=== PATIENT | female | born 1965 | race Caucasian/White ===

== ENCOUNTER → 2019-01-24 | Outpatient (CLI) | payer BC, OTHER ==
--- NOTE | 2019-01-24 15:50 | REP ---
CT temporal bones/IACs: 01/24/2019. Indication: Hearing loss. Comparison: None. Technique: Unenhanced high-resolution axial images of the temporal bones/IACs were performed with coronal reconstructions provided. Findings: There is no temporal bone fracture. No significant abnormalities of the cerebellopontine/medullary angles or IACs are present. 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 Right-sided mastoid effusion is noted without coalescence. There are sclerotic changes of the right mastoid temporal bones indicative of chronic inflammation. The left mastoid air cells are clear. 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 No abnormal soft tissue within the middle ear cavities is present. The ossicles are intact. The tegmen tympani is intact as well. There is no evidence of semicircular canal dehiscence or additional abnormalities of the inner ear anatomy. There appears to be tympanosclerosis on the right. Please correlate with direct inspection. Impression: Right-sided mastoid effusion without new coalescence. Possible mild tympanosclerosis on the right. Electronically Signed by Coleman Maza DO 01/24/2019 03:42 P
== END ==
LOC: M RAD 14:25
PROVIDERS: ATTEND Otolaryngology
DX: H72.2X1 Other marginal perforations of tympanic membrane, right ear (principal)